=== PATIENT | female | born 1940 | race Two or more races ===

== ENCOUNTER 2017-07-01 05:09 | Day surgery (SDC) | payer OTHER ==
[2017-07-01] MEDS ORDERED: CLINDAMYCIN 900 MG/6 ML VIAL ONE (06:55)
[2017-07-01] MEDS ORDERED: LIDOCAINE 1% INJ 50 ML MDV IJ ONE (06:57)
[2017-07-01] MEDS ORDERED: methylPREDNISolone ACETATE 80 MG/ML VIAL ONE (07:19)
== END 2017-07-01 08:38 | disposition home or self-care (01) ==
LOC: DS 05:09
PROVIDERS: ATTEND Specialist
DX: S83.241A Other tear of medial meniscus, current injury, right knee, initial encounter (principal); M23.41 Loose body in knee, right knee; M94.261 Chondromalacia, right knee; M67.51 Plica syndrome, right knee; X58.XXXA Exposure to other specified factors, initial encounter; Y93.9 Activity, unspecified; Y92.89 Other specified places as the place of occurrence of the external cause; Y99.9 Unspecified external cause status; I10 Essential (primary) hypertension; E66.9 Obesity, unspecified
CPT/HCPCS: 88304-TC; 88305-TC; 88311-TC; A4217; A6253; J1040; J1100; J1885; J2405; J2704; J3490